=== PATIENT | male | born 1975 | race Caucasian/White ===

== ENCOUNTER 2021-12-04 03:03 | Inpatient (IN) | payer SELFPAY ==
[2021-12-04] VITALS (54 sets, daily range): BP systolic 122–155; BP diastolic 51–102; PULSE 69–117; RESP 14–28; TEMP 36.1–37; O2SAT 91–100; BMI 23.3
--- NOTE | ~2021-12-04 | CT_ITS ---
EXAMINATION: CTA chest PE protocol DATE: 12/06/2021 10:40 INDICATION: Severe shortness of breath TECHNIQUE: Computed tomography angiography (CTA) of the chest was performed with 100 mL Omnipaque-350 intravenous contrast timed to evaluate the pulmonary arteries. Coronal maximum intensity projection 3D-reconstructions were created by the technologist. Automated exposure control and iterative reconst ruction technique were employed. Exam dose: 318.31 mGy-cm total exam DLP. COMPARISON: 12/04/2021 portable AP chest FINDINGS: There is diagnostic contrast enhancement of the pulmonary arteries. There is mild pulmonary embolism involving the left lower lobe and to a lesser extent left upper lobe. No thoracic aortic aneurysm or dissection. Heart size is normal. There is trace pericardial fluid. No hilar or mediastinal mass lesion or lymphadenopathy. Mild infiltrate and/atelectasis in the lower lobes. Normal morphology of the adrenal glands.. Likely chronic L1 fracture deformity. IMPRESSION: Mild left lower lobe and minimal left upper lobe pulmonary embolism Mild infiltrate or atelectasis, lower lobes Reviewed, dictated and finalized at [facility]. Reviewed, dictated and finalized at location B. IMPRESSION: Mild left lower lobe and minimal left upper lobe pulmonary embolis m Mild infiltrate or atelectasis, lower lobes
--- NOTE | ~2021-12-04 | XR_ITS ---
EXAMINATION: XR chest 1V portable DATE: 12/04/2021 04:04 INDICATION: Shortness of breath. TECHNIQUE: A single frontal view of the chest was obtained. COMPARISON: Chest single view 02/12/2018 FINDINGS: The chest demonstrates clear lungs without pneumonia, pleural effusion, or pneumothorax. Th e heart size is normal. There is an old healed right rib fracture. IMPRESSION: 1. No acute cardiopulmonary disease. Reviewed, dictated and finalized at location A.
--- NOTE | ~2021-12-04 | US_ITS ---
EXAMINATION:US venous doppler LE BI INDICATION:Evaluate for DVT. TECHNIQUE: Multiple grayscale, color flow and Doppler images of the right and left lower extremity de ep venous systems were obtained and reviewed. COMPARISON:No prior studies for comparison. FINDINGS: The common femoral, superficial femoral and popliteal veins demonstrate normal respiratory variation, augmentation and compressibility. Color flow is also seen within the posterior tibial, pe roneal, greater saphenous and profunda veins. IMPRESSION: 1: No lower extremity deep venous thrombosis. Reviewed, dictated and finalized at location A.
--- NOTE | ~2021-12-04 | CT_ITS ---
EXAMINATION: CTA brain carotid DATE: 12/07/2021 12:51 INDICATION: Anisocoria. TECHNIQUE: Computed tomographic angiography (CTA) of the head was performed without and with 100 mL O mnipaque-350 intravenous contrast. CTA of the neck was performed with intravenous contrast. Automated exposure control and iterative reconstruction technique were employed. The dose-length product was 1 755.80 mGy-cm. Maximum intensity projection and volume rendered 3D-reconstructions were created by suzanne merrill technologist on a separate workstation. COMPARISON: Head CT 12/06/2021 FINDINGS: HEAD CTA: There is no intracranial hemorrhage, acute infarction, or abnormal intracranial mass lesion . The ventricles are normal in size. There is mucosal thickening in the paranasal sinuses with surgic al changes. The mastoid air cells are normal. The orbits are normal. The vertebral arteries are codom inant. There is no significant stenosis of basilar artery or the posterior cerebral arteries. There i s no significant stenosis of the intracranial internal carotid arteries or anterior or middle cerebra l arteries. Anterior communicating artery is normal. Posterior communicating arteries are not identif ied. There is no aneurysm. NECK CTA: There is mild emphysema. There are no pathologically enlarged lymph nodes. There is no sign ificant stenosis of the vertebral arteries. There is mild plaque in proximal left internal carotid ar helene. There is 0% stenosis of the proximal right internal carotid artery relative to normal distal ar helene lumen diameter (NASCET criteria). There is 0% stenosis of the proximal left internal carotid art dante relative to normal distal artery lumen diameter. There is severe cervical spondylosis. IMPRESSION: 1. Normal brain. No aneurysm or significant intracranial arterial stenosis. 2. 0% stenosis of the proximal internal carotid arteries relative to normal distal artery lumen diame ters (NASCET criteria). Reviewed, dictated and finalized at location A. IMPRESSION: 1. Normal brain. No aneurysm or significant intracranial arterial stenosis. 2. 0% stenosis of the proximal internal carotid arteries relative to normal dis rosalva artery lumen diameters (NASCET criteria).
--- NOTE | ~2021-12-04 | CT_ITS ---
EXAMINATION: CT brain wo con DATE: 12/06/2021 12:31 INDICATION: Anisocoria. TECHNIQUE: Computed tomography (CT) of the head was performed without intravenous contrast. The mA wa s adjusted according to patient size. Iterative reconstruction technique was employed. The dose-lengt h product was 605.33 mGy-cm. COMPARISON: None FINDINGS: There is no intracranial hemorrhage, acute infarction, or abnormal intracranial mass lesion . The ventricles are normal in size. There is mucosal thickening in the paranasal sinuses with surgic al changes. The orbits are normal. The mastoid air cells are normal. IMPRESSION: 1. Normal brain. Reviewed, dictated and finalized at location A. IMPRESSION: 1. Normal brain.
--- NOTE | 2021-12-04 03:12 | ECG_ITS ---
Measurements Intervals [place] Rate: 86 P: 79 OH: 167 QRS: 70 QRSD: 84 T: 54 QT: 334 QTc: 400 Interpretive Statements SINUS RHYTHM NORMAL ECG NO PREVIOUS ECG AVAILABLE FOR COMPARISON Electronically Signed On 12-04-2021 6:57:00 CDT by Joe Fritz D.O.
--- NOTE | 2021-12-04 03:27 | ED.GENADULT ---
HPI - General Adult General Chief complaint: Shortness of Breath/Dyspnea Stated complaint: SOB, Asthma Time Seen by Provider: 12/04/21 03:25 History of Present Illness HPI narrative: This is a 38-year-old male with a history of COPD/ asthma presenting to ED with difficulty breathing. Patient has been having progressively worse shortness of breath for 1 week. It started improved for several days and then got progressively worse. He has been using his albuterol inhaler without relief. He is supposed to be on an inhaled corticosteroid however he cannot get it for his insurance. Patient denies fever chills. He has had a persistent cough and has had some hemoptysis. Patient is not vaccinated against COVID-19. He denies chest pain, abdominal pain, nausea vomiting or diarrhea. Related Data Allergies Allergy/AdvReac Type Severity Reaction Status Date / Time SEASONAL ALLERGENS Allergy Uncoded 12/14/12 12:10 Review of Systems Review of Systems: CONSTITUTIONAL: Denies night sweats. EYES: No eye pain ENT: Denies rhinorrhea CARDIOVASCULAR: Denies palpitations RESPIRATORY: Denies hemoptysis GASTROINTESTINAL: Denies hematemesis GENITOURINARY: Denies hematuria. SKIN: Denies rash MUSCULOSKELETAL: Denies myalgia. NEUROLOGIC: Denies weakness. PSYCHIATRIC: Denies delusions Exam Narrative: APPEARANCE: Patient is speaking in 1-2 word sentences. He is tripoding. He is coughing continuously. Head atraumatic. EYES: PERRLA/EOMI, NOSE: Normal no drainage NECK: Supple, Trachea midline RESPIRATORY: patient has wheezing in all chang. There are scattered expiratory rhonchi. CARDIOVASCULAR: S1S2 appreciated, no peripheral edema ABDOMINAL: Soft, nontender, nondistended, MUSCULOSKELETAl: No obvious deformities NEURO: Alert. Moving 4/4 extremities SKIN:: Warm, dry. Normal color PSYCHIATRIC: Normal affect Course Vital Signs Vital signs: Vital Signs Temperature 97.7 F 12/04/21 03:07 Pulse Rate 100 12/04/21 03:07 Respiratory Rate 22 H 12/04/21 03:07 Blood Pressure 150/86 H 12/04/21 03:07 Pulse Oximetry 92 12/04/21 03:07 Oxygen Delivery Room Air 12/04/21 03:07 Temperature 97.7 F 12/04/21 03:07 Pulse Rate 100 12/04/21 03:07 Respiratory Rate 22 H 12/04/21 03:07 Blood Pressure 150/86 H 12/04/21 03:07 Pulse Oximetry 92 12/04/21 03:07 Oxygen Delivery Room Air 12/04/21 03:07 Medical Decision Making MDM Narrative Medical decision making narrative: this is a 38-year-old male with a history of asthma and COPD presenting to ED in respiratory distress. Patient is tripoding speaking 1-2 word sentences. His lung exam is consistent with COPD. Patient will be started on BiPAP. he will be given continuous inline DuoNebs, steroids and magnesium. Lab work, EKG and chest x-ray have been ordered. COVID swab has been ordered. Patient's lab work was within acceptable limits. His COVID swab was negative. Chest x-ray interpreted by myself showed hyperinflated lungs but no evidence of pneumonia or pneumothorax. Upon re-evaluation patient's work of breathing has decreased. He still has scattered expiratory wheezing. The patient will be admitted for further management of his COPD exacerbation. Vital Signs Vital Signs: Vital Signs Temperature 97.7 F 12/04/21 03:07 Pulse Rate 100 12/04/21 03:07 Respiratory Rate 22 H 12/04/21 03:07 Blood Pressure 150/86 H 12/04/21 03:07 Pulse Oximetry 92 12/04/21 03:07 Oxygen Delivery Room Air 12/04/21 03:07 Temperature 97.7 F 12/04/21 03:07 Pulse Rate 100 12/04/21 03:07 Respiratory Rate 22 H 12/04/21 03:07 Blood Pressure 150/86 H 12/04/21 03:07 Pulse Oximetry 92 12/04/21 03:07 Oxygen Delivery Room Air 12/04/21 03:07 Lab Data Result diagrams: 12/04/21 03:25 12/04/21 03:25 Labs: Lab Results 12/04/21 12/04/21 12/04/21 Range/Units 03:25 03:25 03:25 WBC 7.7 (4.5-10.0) K/mm3
[2021-12-04 03:33] LABS: Basophils Absolute Auto 0.1 K/mm3 (0.0-0.1); Basophils Percent Auto 0.6 % (0.2-1.2); Eosinophils Absolute Auto 1.2 K/mm3 (0-0.3); Eosinophils Percent Auto 16.1 % (0-4.4); Hematocrit 44.1 % (42.0-52.0); Hemoglobin 14.7 g/dL (14.0-18.0); Immature Granulocyte Absolute 0.02 K/mm3 (0.00-0.031); Immature Granulocyte Percent A 0.3 % (0-0.5); Lymphocytes Absolute Auto 2.08 K/mm3 (0.9-3.2); Mean Corpuscular HGB Conc 33.3 g/dl (32-36); Mean Corpuscular Hemoglobin 31.5 pg (26-34); Mean Corpuscular Volume 94.6 fl (80-100); Mean Platelet Volume 9.5 fl (7.4-10.4); Monocytes Absolute Auto 0.8 K/mm3 (0.1-0.6); Monocytes Percent Auto 10.5 % (2.6-8.5); Neutrophils Absolute Auto 3.5 K/mm3 (1.3-6.7); Neutrophils Percent Auto 45.5 % (45.5-73.1); Platelet Count Result 253 k/mm3 (150-375); Red Blood Count 4.66 M/mm3 (4.6-6.20); White Blood Count 7.7 K/mm3 (4.5-10.0)
[2021-12-04] MEDS: IPRATROPIUM BR 0.02% INH SOLN 0.5 MG/2.5 ML VIAL 1 MG (03:34)
[2021-12-04] MEDS: ALBUTEROL SULFATE NEB 2.5 MG/3 ML INH 15 MG (03:35)
[2021-12-04 03:44] LABS: Alanine Aminotransferase 28 U/L (6-50); Albumin Level 4.3 g/dL (3.5-5.1); Alkaline Phosphatase 49 U/L (38-126); Anion Gap 10 mmol/L (8-16); Aspartate Amino Transferase 35 U/L (17-59); Bilirubin,Total 0.5 mg/dL (0.2-1.3); Blood Urea Nitrogen 12 mg/dL (9-20); Calcium 8.4 mg/dL (8.4-10.2); Carbon Dioxide 23 mmol/L (22-30); Chloride 108 mmol/L (98-107); Estimated CRCL calculation 102 ml/min; Estimated Glomerular Filt Rate > 60; Glucose 101 mg/dL (65-110); Potassium 4.1 mmol/L (3.4-5.0); Sodium 141 mmol/L (137-145)
--- NOTE | 2021-12-04 03:45 | PM.IMHP ---
H&P: HPI History of Present Illness Date/Time: 12/04/21 03:45 Chief Complaint: Shortness of breath Narrative: Patient is a 46-year-old male with past medical history of asthma who presented to the ED with complaints of shortness of breath over the last week. Patient's girlfriend was in the room and giving most of the history as the patient was on BiPAP and unable to complete to statins. However she stated that it started about a week ago and they were using home remedies like steam and black coffee. Patient was starting to get better she said however he was having hard time getting up sputum when he would cough. However when he did get a sputum up it was white and green in nature and more than normal. They also said that sometimes the sputum was bloody. Yesterday when bought some Mucinex however that did not seem to help either. Patient's girlfriend stated that she was able to hear his breathing from across the room due to the increasing wheezes. 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 Patient does use inhalers however it was unclear of how he was getting the inhalers but his girlfriend stated that they are just buying inhalers from around. Patient denies any use of CPAP or BiPAP at home. Spoke with patient about smoking cessation. Current BiPAP settings 02/22 with a backup rate of 16 at 40%. Patient seems to be breathing okay and is satting about 93%. Patient did deny any chest pain, nausea, vomiting, diarrhea, constipation, weakness, fatigue, sweats, fevers, chills, lightheadedness, dizziness, falls or syncope. Patient is being admitted to the hospital services and patient Review of Systems Review of Systems: All systems reviewed & are unremarkable except as noted in HPI and below PMFSH Past Medical History Medical History Asthma Family History Family History Father Hypertension Heart disease COPD (chronic obstructive pulmonary disease) Social History Social History (Updated 12/04/21 @ 06:55 by JEFFREY Rankin) Social History: Patient lives with his girlfriend Lexii who will be his healthcare surrogate at this time. Patient has 1 child that is 18 and has 2 dogs. 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 [employer] Gender identity (if verbalized by the patient): Male Sexual Orientation (if Verbalized by the Patient): Straight or Heterosexual Spiritual care concerns: No Agree to blood products: Yes Meds Home Medications and Allergies Home Medications Medication Instructions Recorded Confirmed Type albuterol sulfate 90 mcg/actuation 2 puff inhalation QID PRN 12/04/21 12/04/21 History aerosol inhaler Shortness Of Breath epinephrine 0.125 mg/actuation 1 puff inhalation Q4H PRN 12/04/21 12/04/21 History aerosol inhaler (Primatene Mist) Shortness Of Breath Allergies Allergy/AdvReac Type Severity Reaction Status Date / Time Penicillins Allergy Unknown Verified 12/04/21 06:53 SEASONAL ALLERGENS Allergy Congested Uncoded 12/04/21 06:53 Vital Signs Vital Signs - 24 hr 12/04/21 03:07 12/04/21 03:43 12/04/21 03:47 Temperature 97.7 F Pulse Rate 100 87 87 Respiratory Rate 22 H 24 H 24 H Blood Pressure 150/86 H Pulse Oximetry 92 99 Oxygen Delivery Room Air BiPAP 12/04/21 03:58 12/04/21 03:59 12/04/21 03:14 Temperature Pulse Rate 90 117 H
[2021-12-04] MEDS: MAGNESIUM SULF 2 GM/WATER 50ML 2 GM/50 ML BAG IVPB (03:54)
[2021-12-04] MEDS: methylPREDNISolone SOD SUCC 125 MG VIAL IV PUSH (03:54)
[2021-12-04 04:10] LABS: SARS-CoV-2 RNA PCR Negative
--- NOTE | 2021-12-04 06:47 | PC.NURSE ---
This patient, Josias Curiel, was admitted to IMU Room 207-01. Patient/family oriented to hospital policies and general routines including ID bracelet, bed and alarms, visiting hours, pain management, procedures, bathroom and other care routines, personal items, smoking policy, room service/diet, and visiting hours. Information on how to activate the Rapid Response Team has been discussed. Patient/Family are encouraged to report perceived risks to care and to ask questions if they do not understand what they are told or what they should do.
[2021-12-04 07:27] LABS: Alveolar/Arterial O2 Gradient 136.3 mmHg; Base Excess ABG -1.6 mEq/l (+/-2.0); Carboxyhemoglobin 0.7 % THb (0-2.0); Fractional Inspired Oxygen 40 %; HCO3 ABG 24.2 mEq/l (22.0-26.0); Methemoglobin ABG 0.4 %THb (0-1.5); Oxygen Content ABG 20.4 %vol (16.0-22.0); Oxygen Saturation ABG 97.1 % (95.0-100.0); Oxyhemoglobin 95.9 % THb (90.0-100.0); PCO2 ABG 44.8 mmHg (35.0-45.0); PO2 ABG 97.4 mmHg (80.0-100.0); PO2 FiO2 Ratio Arterial Blood 2.43 %; Total Hemoglobin 15.1 g/dL (12.0-18.0); pH ABG 7.351 (7.350-7.450)
[2021-12-04 07:28] LABS: Device NON-INVASIVE VENT; Non-Invasive Expiratory Pressure 8 CMH2O; Non-Invasive Inspiratory Pressure 12 CMH2O; Non-Invasive Vent Rate 16 /MIN; Site Drawn LEFT BRACHIAL
[2021-12-04 07:52] LABS: Magnesium 2.1 mg/dL (1.6-2.3)
[2021-12-04] MEDS: ENOXAPARIN 40 MG/0.4 ML SYRINGE SUB-Q (08:17)
[2021-12-04] MEDS: ALBUTEROL SULFATE NEB 2.5 MG/3 ML INH INHALATION ×4 (08:45→20:21)
[2021-12-04] MEDS: IPRATROPIUM BR 0.02% INH SOLN 0.5 MG/2.5 ML VIAL INHALATION ×4 (08:45→20:21)
[2021-12-04 13:34] LABS: D Dimer 0.31 ug/mL (<0.48)
[2021-12-04] MEDS: methylPREDNISolone SOD SUCC 40 MG VIAL IV PUSH ×2 (14:45→21:18)
[2021-12-05] VITALS (26 sets, daily range): BP systolic 131–146; BP diastolic 64–89; PULSE 57–99; RESP 16–20; TEMP 36.2–36.7; O2SAT 95–100
[2021-12-05] MEDS: IPRATROPIUM BR 0.02% INH SOLN 0.5 MG/2.5 ML VIAL INHALATION ×6 (00:16→20:48)
[2021-12-05] MEDS: ALBUTEROL SULFATE NEB 2.5 MG/3 ML INH INHALATION ×6 (00:16→20:49)
[2021-12-05] MEDS: methylPREDNISolone SOD SUCC 40 MG VIAL IV PUSH ×3 (06:28→21:58)
[2021-12-05] MEDS: ENOXAPARIN 40 MG/0.4 ML SYRINGE SUB-Q (10:02)
--- NOTE | 2021-12-05 14:24 | PM.IMPN ---
Subjective Date/time seen: 12/05/21 14:24 Interval history: No overnight events noted. No chest pain or shortness of breath. No nausea, vomiting or diarrhea. No fevers or chills. Objective Data Vital Signs Vital Signs: Vital Signs - 24 hr 12/04/21 15:43 12/04/21 15:47 12/04/21 15:59 Temperature Pulse Rate 89 84 Respiratory Rate 20 20 Blood Pressure Pulse Oximetry 97 Oxygen Delivery Nasal Cannula Oxygen Flow Rate 4 Fraction of Inspired Oxygen 12/04/21 16:00 12/04/21 16:12 12/04/21 18:00 Temperature 98.6 F Pulse Rate 92 101 H 90 Respiratory Rate 20 Blood Pressure 134/96 H Pulse Oximetry 91 Oxygen Delivery Oxygen Flow Rate Fraction of Inspired Oxygen 12/04/21 20:23 12/04/21 20:24 12/04/21 20:32 Temperature Pulse Rate 84 77 Respiratory Rate 16 16 Blood Pressure Pulse Oximetry 99 Oxygen Delivery Nasal Cannula Oxygen Flow Rate 3 Fraction of Inspired Oxygen 12/04/21 20:00 12/04/21 20:00 12/04/21 20:00 Temperature 98.2 F Pulse Rate 78 78 Respiratory Rate 22 H Blood Pressure 123/51 L Pulse Oximetry 96 99 Oxygen Delivery Nasal Cannula Oxygen Flow Rate 4 Fraction of Inspired Oxygen 12/04/21 22:00 12/04/21 22:55 12/04/21 23:23 Temperature 97.5 F L Pulse Rate 91 81 77 Respiratory Rate 23 H 20 Blood Pressure 155/75 H Pulse Oximetry 99 99 Oxygen Delivery BiPAP Oxygen Flow Rate Fraction of Inspired Oxygen 12/05/21 00:16 12/05/21 00:33 12/05/21 00:00 Temperature Pulse Rate 79 74 78 Respiratory Rate 16 16 Blood Pressure Pulse Oximetry Oxygen Delivery Oxygen Flow Rate Fraction of Inspired Oxygen 12/05/21 02:00 12/05/21 04:00 12/05/21 04:49 Temperature 97.9 F Pulse Rate 79 61 59 L Respiratory Rate 18 16 Blood Pressure 134/64 Pulse Oximetry 95 Oxygen Delivery Oxygen Flow Rate Fraction of Inspired Oxygen 12/05/21 04:59 12/05/21 00:00 12/05/21 04:00 Temperature Pulse Rate 60 Respiratory Rate 16 Blood Pressure Pulse Oximetry 99 95 Oxygen Delivery BiPAP Nasal Cannula Oxygen Flow Rate 4 Fraction of Inspired Oxygen 40 12/05/21 04:00 12/05/21 06:00 12/05/21 08:14 Temperature Pulse Rate 65 75 59 L Respiratory Rate 16 Blood Pressure Pulse Oximetry Oxygen Delivery Oxygen Flow Rate Fraction of Inspired Oxygen 12/05/21 08:16 12/05/21 08:00 12/05/21 08:00 Temperature 97.2 F L Pulse Rate 57 L Respiratory Rate 16 Blood Pressure 137/83 Pulse Oximetry 97 100 95 Oxygen Delivery Nasal Cannula Nasal Cannula Oxygen Flow Rate 2 2 Fraction of Inspired Oxygen 12/05/21 08:00 12/05/21 10:00 12/05/21 12:00 Temperature 97.3 F L Pulse Rate 62 99 77 Respiratory Rate 16 Blood Pressure 131/72 Pulse Oximetry 98 Oxygen Delivery Oxygen Flow Rate Fraction of Inspired Oxygen 12/05/21 13:24 12/05/21 13:31 Temperature Pulse Rate 73 71 Respiratory Rate 16 16 Blood Pressure Pulse Oximetry Oxygen Delivery Oxygen Flow Rate Fraction of Inspired Oxygen Intake/Output Intake/Output: Intake & Output 12/02/21 12/03/21 12/04/21 12/05/21 23:59 23:59 23:59 23:59 Intake Total 1560 520 Output Total 1100 Balance 1560 -580 Meds/Results Medications: Active Medications Generic Name Dose Route Start Last Admin Trade Name Freq PRN Reason Stop Dose Admin Acetaminophen 650 mg 12/04/21 06:48 Acetaminophen 325 Mg Tablet PO Q4H PRN Mild Pain (1-3) or Fever Hydrocodone Bitart/Acetaminophen 1 tab 12/04/21 06:48 Hydrocodone/Acetaminophen (*Crx) 5-325 Mg Tablet PO Q4H PRN Moderate Pain (4-10) Albuterol 2.5 mg 12/04/21 08:00 12/05/21 13:24 Albuterol Sulfate Neb 2.5 Mg/3 Ml Inh INHALATION 2.5 mg Q4HRT PAMELA Administration Enoxaparin Sodium 40 mg 12/04/21 09:00 12/05/21 10:02 Enoxaparin 40 Mg/0.4 Ml Syringe SUB-Q 40 mg DAILY [facility]
[2021-12-05] MEDS: MONTELUKAST SODIUM 10 MG TABLET PO (20:45)
[2021-12-05] MEDS: FLUTICASONE/SALMETEROL 45-21 MCG INHALER 1 PUFF 2 PUFF INHALATION (20:49)
[2021-12-06] VITALS (20 sets, daily range): BP systolic 133–168; BP diastolic 76–89; PULSE 62–111; RESP 18–22; TEMP 36.4–37.1; O2SAT 94–100
--- NOTE | 2021-12-06 03:00 | PCRCNOTE ---
Window of time for administration has passed. See next scheduled administration.
--- NOTE | 2021-12-06 05:12 | PC.NURSE ---
I HAVE MONITORED THE CHARTING AND MEDICATION DISPENSING FOR THIS PATIENT UNDER THE CARE OF ROSALBA JEFFERSON RN-LICENSE PENDING, AND I AGREE WITH IT ALL.
[2021-12-06] MEDS: methylPREDNISolone SOD SUCC 40 MG VIAL IV PUSH ×3 (05:48→20:57)
[2021-12-06] MEDS: ALBUTEROL SULFATE NEB 2.5 MG/3 ML INH INHALATION ×5 (08:10→23:06)
[2021-12-06] MEDS: FLUTICASONE/SALMETEROL 45-21 MCG INHALER 1 PUFF 2 PUFF INHALATION (08:10)
[2021-12-06] MEDS: IPRATROPIUM BR 0.02% INH SOLN 0.5 MG/2.5 ML VIAL INHALATION ×4 (08:10→20:57)
[2021-12-06 09:47] LABS: Basophils Percent Auto 0.1 % (0.2-1.2); Hematocrit 45.6 % (42.0-52.0); Hemoglobin 15.1 g/dL (14.0-18.0); Immature Granulocyte Absolute 0.08 K/mm3 (0.00-0.031); Immature Granulocyte Percent A 0.9 % (0-0.5); Lymphocytes Absolute Auto 0.75 K/mm3 (0.9-3.2); Lymphocytes Percent Auto 8.2 % (18.3-44.2); Mean Corpuscular HGB Conc 33.1 g/dl (32-36); Mean Corpuscular Hemoglobin 31.4 pg (26-34); Mean Corpuscular Volume 94.8 fl (80-100); Mean Platelet Volume 10.1 fl (7.4-10.4); Monocytes Absolute Auto 0.3 K/mm3 (0.1-0.6); Monocytes Percent Auto 3.3 % (2.6-8.5); Neutrophils Percent Auto 87.5 % (45.5-73.1); Platelet Count Result 273 k/mm3 (150-375); Red Blood Count 4.81 M/mm3 (4.6-6.20); Red Cell Distribution Width 13.4 % (11.5-14.5); White Blood Count 9.2 K/mm3 (4.5-10.0)
[2021-12-06 10:04] LABS: Alanine Aminotransferase 30 U/L (6-50); Albumin Level 4.2 g/dL (3.5-5.1); Alkaline Phosphatase 40 U/L (38-126); Anion Gap 7 mmol/L (8-16); Aspartate Amino Transferase 29 U/L (17-59); Bilirubin,Total 0.5 mg/dL (0.2-1.3); Blood Urea Nitrogen 24 mg/dL (9-20); Calcium 9.1 mg/dL (8.4-10.2); Carbon Dioxide 27 mmol/L (22-30); Chloride 102 mmol/L (98-107); Estimated CRCL calculation 102 ml/min; Estimated Glomerular Filt Rate > 60; Glucose 124 mg/dL (65-110); Potassium 4.8 mmol/L (3.4-5.0); Sodium 136 mmol/L (137-145)
[2021-12-06] MEDS: ENOXAPARIN 40 MG/0.4 ML SYRINGE SUB-Q (10:18)
--- NOTE | 2021-12-06 10:26 | PC.NURSE ---
Patient did not refuse breakfast or dinner on Saturday, December 05, 2021. Patient's visitors brought in meals for him to eat. Will continue to monitor.
--- NOTE | 2021-12-06 15:52 | PM.IMPN ---
Progress Note: A&P Assessment and Plan (1) Acute respiratory failure: Code(s): J96.00 - Acute respiratory failure, unspecified whether with hypoxia or hypercapnia Status: Acute Assessment and Plan: This appears to have resolved as patient is on room air speaking in full sentences without difficulty during rounds. CTA chest does show bilateral pulmonary embolisms. Apixaban initially ordered but due to financial constraints patient will need to be started on theraputic enoxaparin and bridged to warfarin. Will need follow up outpatient to monitor INR. (2) Acute exacerbation of chronic obstructive airways disease: Code(s): J44.1 - Chronic obstructive pulmonary disease with (acute) exacerbation Status: Acute Assessment and Plan: Patient has been uncontrolled due to inability to find cost effective alternatives to symbicort. -Discontinue q4h duonebs -Continue fluticasone-salmeterol BID -Discontinue methylprednisolone ---> prednisone 40 mg to start in AM -Continue montelukast (3) Hypertension: Code(s): I10 - Essential (primary) hypertension Status: Acute Assessment and Plan: Unclear if this is essential hypertension or blood pressure elevation due to steroids. Will monitor for now. (4) Bilateral pulmonary embolism: Code(s): I26.99 - Other pulmonary embolism without acute cor pulmonale Status: Acute Assessment and Plan: CTA chest shows bilateral pulmonary embolism with mild lover left lobe and minimal left upper lobe pulmonary embolism. Bilateral LE ultrasound shows no LE DVT. -Started enoxaparin BID dosing with plan to start warfarin tomorrow -Will need to remain hospitalized while bridging -Goal INR 2-3 -Will get TTE to be sure no RV strain (5) Unequal pupils: Code(s): H57.02 - Anisocoria Status: Acute Assessment and Plan: Noted this morning. All other parts of the neurological exam show no deficits. CTA head shows no acute intracranial process. -Neurology consulted -Ordered syphilis Subjective Date/time seen: 12/06/21 11:52 Patient seen and examined not wearing any oxygen this morning. Patient says he feels much better. Says he works for the [employer] but does not have a primary care physician as his retired a few years ago. Over the years he has avoided having to pay for his prescribed inhalers but having his grandfather [facility] or by getting inhalers from other family member. Previously used Primatene mist but says he feels the newer version is not as helpful. Says in the past combivent and Symbicort worked well. He was unable to continue to purchase symbicort after it once cost him over 300 dollars. Nursing reports noting within the last hour the right pupil is more dilated that the left. Patient also report some debilitating neck pain that started within the last few weeks. Also patient refused CTA chest until after counseling due to concerns about cost. Per care coordination patient qualifies for emergency medicaid. Review of Systems Respiratory: Respiratory: Denies dyspnea and Denies wheezing Objective Data Vital Signs Vital Signs: Vital Signs - 24 hr 12/05/21 20:53 12/05/21 21:24 12/05/21 23:17 Temperature 97.9 F Pulse Rate 85 62 Respiratory Rate 18 Blood Pressure 146/89 H Pulse Oximetry 96 95 Oxygen Delivery Room Air Fraction of Inspired Oxygen 12/06/21 00:00 12/06/21 00:00 12/06/21 01:40 Temperature Pulse Rate 86 62 73 Respiratory Rate 18 Blood Pressure Pulse Oximetry 95 Oxygen Delivery Room Air Fraction of Inspired Oxygen 40 12/06/21 03:03 12/05/21 21:04 12/06/21 03:15 Temperature Pulse Rate 90 81 91 Respiratory Rate 18 18 18 Blood Pressure Pulse Oximetry Oxygen Delivery Fraction of Inspired Oxygen 12/06/21 04:00 12/06/21 04:00 12/06/21 04:00 Temperature 98.1 F Pulse R
[2021-12-06 18:13] LABS: Magnesium 2.1 mg/dL (1.6-2.3)
[2021-12-06] MEDS: CALCIUM CARBONATE (TUMS) 500 MG (200 MG ELEMENTAL) PO (20:57)
[2021-12-06] MEDS: ENOXAPARIN 80 MG/0.8 ML SYRINGE 75 MG SUB-Q (20:57)
[2021-12-06] MEDS: MONTELUKAST SODIUM 10 MG TABLET PO (20:57)
[2021-12-07] VITALS (13 sets, daily range): BP systolic 132–144; BP diastolic 70–80; PULSE 61–84; RESP 20; TEMP 36.6–36.9; O2SAT 95–99
--- NOTE | 2021-12-07 | ECHO_ITS ---
Patient Info Name: Josias Curiel Age: 46 years : 1975 Gender: Male Ht: 70 in Wt: 163 lbs BSA: 1.91 m2 HR: 89 bpm BP: 132 / 78 mmHg Technical Quality: Good Exam Date: 12/07/2021 10:00 AM Exam Location: [facility] Patient Status: Inpatient Admit Date: 12/04/2021 Staff Ordering Physician: Aliya Long MD Hair Stylist: Michelet Galeano, ALEKSANDAR, RT Attending Provider: Gabe Boone MD Referring Physician: Mercedes GONZALEZ; Exam Type: CA echo doppler color flow Study Info Indications I26.99 - Other pulmonary embolism without acute cor pulmonale Complete two-dimensional, color flow and Doppler transthoracic echocardiogram is performed. Strain analysis performed. Summary 1. Complete two-dimensional, color flow and Doppler transthoracic echocardiogram is performed. 2. Left ventricular chamber dimension is normal. 3. Left ventricular systolic function is normal, estimated at 60-65%. 4. The left ventricular diastolic function is normal. 5. E/e' 5 is not elevated. 6. Global longitudinal strain is normal at -22.3%. Left Ventricle E/e' 5 is not elevated. Global longitudinal strain is normal at -22.3%. Left ventricular chamber dimension is normal. Left ventricular systolic function is normal, estimated at 60-65%. The left ventricular diastolic function is normal. Right Ventricle Right ventricular systolic function is normal and with normal TAPSE 2.6 cm. Right ventricular chamber dimension is normal. Left Atria Left atrial chamber dimension is normal. Right Atria Right atrial chamber dimension is normal. Aortic Valve The aortic valve is trileaflet. There is no aortic valve stenosis. There is no aortic valve regurgitation. Pulmonic Valve There is no pulmonic regurgitation. Mitral Valve There is no mitral valve stenosis. There is no mitral valve regurgitation. Tricuspid Valve There is no tricuspid valve regurgitation. Pericardium/Pleural There is no pericardial effusion. Inferior Vena Cava Normal inferior vena cava with >50% collapse upon inspiration consistent with normal right atrial pressure, 5 mmHg. Aorta The aortic root size at the sinus of Valsalva is normal. Left Ventricular Outflow Tract Name Value Normal LVOT 2D LVOT Diameter 2.0 cm LVOT Doppler LVOT Peak Gradient 6 mmHg LVOT Mean Gradient 3 mmHg LVOT VTI 24 cm LVOT VTI/AV VTI Ratio 0.8 LVOT Stroke Volume 75 ml LVOT CO 4.9 l/min LVOT CI 2.6 l/min/m2 Mitral Valve Name Value Normal MV Doppler MV Decel Greene 369 cm/s2 MV PHT 51 ms MV Area (PHT) 4.3 c
[2021-12-07] MEDS: ALBUTEROL SULFATE NEB 2.5 MG/3 ML INH INHALATION (09:13)
[2021-12-07] MEDS: FLUTICASONE/SALMETEROL 45-21 MCG INHALER 1 PUFF 2 PUFF INHALATION (09:18)
[2021-12-07] MEDS: ENOXAPARIN 80 MG/0.8 ML SYRINGE 75 MG SUB-Q (09:56)
[2021-12-07] MEDS: predniSONE 20 MG TABLET 40 MG PO (09:58)
--- NOTE | 2021-12-07 10:08 | PM.IMPN ---
Progress Note: A&P Assessment and Plan (1) Acute respiratory failure: Code(s): J96.00 - Acute respiratory failure, unspecified whether with hypoxia or hypercapnia Status: Acute Assessment and Plan: This appears to have resolved as patient is on room air speaking in full sentences without difficulty during rounds. CTA chest does show bilateral pulmonary embolisms. Apixaban initially ordered but due to financial constraints patient will need to be started on therapeutic enoxaparin and bridged to warfarin. Will need follow up outpatient to monitor INR. -Start warfarin tonight -Coags for AM (2) Acute exacerbation of chronic obstructive airways disease: Code(s): J44.1 - Chronic obstructive pulmonary disease with (acute) exacerbation Status: Acute Assessment and Plan: Patient has been uncontrolled due to inability to find cost effective alternatives to symbicort. -Continue fluticasone-salmeterol BID -Prednisone 40 mg daily -Continue montelukast (3) Hypertension: Code(s): I10 - Essential (primary) hypertension Status: Acute Assessment and Plan: Unclear if this is essential hypertension or blood pressure elevation due to steroids. BP improved with decrease in steroid. Will monitor. (4) Bilateral pulmonary embolism: Code(s): I26.99 - Other pulmonary embolism without acute cor pulmonale Status: Acute Assessment and Plan: CTA chest shows bilateral pulmonary embolism with mild lover left lobe and minimal left upper lobe pulmonary embolism. Bilateral LE ultrasound shows no LE DVT. Echo shows normal RV with no strain. -Continue enoxaparin BID dosing with plan to start warfarin tonight -Will need to remain hospitalized while bridging -Goal INR 2-3 (5) Unequal pupils: Code(s): H57.02 - Anisocoria Status: Acute Assessment and Plan: Noted this morning. All other parts of the neurological exam show no deficits. CTA head shows no acute intracranial process. RPR negative. -Appreciate Neurology recommendations Subjective Date/time seen: 12/07/21 20:08 Patient says he feels better. Says he requested the breathing treatments overnight after the scheduled duo nebs were discontinued as a prophylactic measure and not because he was feeling shortness of breath. Discussed with patient that he will likely be hospitalized for another 3-4 days to complete the warfarin bridging and get the INR within the 2-3 range needed for PE. Also discussed the duration of treatment for PE as well as that for his COPD he will likely need to look for online patient assistance programs. Unless he is eligible for medicaid, which would pay for his scheduled COPD inhalers. Review of Systems Respiratory: Respiratory: Denies dyspnea Exam Narrative: GENERAL: NAD, cooperative HEENT: Normocephalic, atraumatic, anicteric, nares clear, oropharynx moist and clear, dentition normal NECK:Supple CV: Normal S1, S2, RRR, No MRG RESP: CTAB, Normal work of breathing. EXTREMITIES: Warm and well perfused, no clubbing, cyanosis, or edema. SKIN: warm, dry and intact. NEURO: Right pupil dilated without accommodation. Objective Data Vital Signs Vital Signs: Vital Signs - 24 hr 12/06/21 20:50 12/06/21 20:58 12/06/21 22:00 Temperature Pulse Rate 91 95 104 H Respiratory Rate 20 22 H Blood Pressure Pulse Oximetry Oxygen Delivery Fraction of Inspired Oxygen 12/06/21 23:07 12/07/21 00:00 12/07/21 00:00 Temperature 98.0 F Pulse Rate 84 79 83 Respiratory Rate 18 20 Blood Pressure 140/70 Pulse Oximetry 96 Oxygen Delivery Fraction of Inspired Oxygen 12/07/21 00:00 12/07/21 02:00 12/07/21 04:00 Temperature Pulse Rate 83 75 61 Respiratory Rate 20 Blood Pressure Pulse Oximetry 96 Oxygen Delivery Room Air Fraction of Inspired Oxygen 40 12/07/21 04:00 12/07/21 04:00 12/07/21 06:0
--- NOTE | 2021-12-07 11:33 | WPDNEURCNPN ---
Assessment and Plan Assessment and plan (1) Unequal pupils: Code(s): H57.02 - Anisocoria Status: Acute Plan anisocoria with right pupil being bigger than the left though at the time of this examination the pupils are round regular reacting to light equally and there is no restriction of the extraocular movement even though the initial CT scan of the head was normal with no evidence of bleed obtained a CTA to rule out the possibility of aneurysm the chest x-ray is negative and also there is no persistence of the anisocoria and patient is not diabetic year question sympathetic parasympathetic dissociation but it is not persistent Consult date: 12/07/21 Time Seen: 11:00 Reason for consult: Neuro evaluation HPI: Josias Curiel is a 46 year old male admitted to the hospital through the emergency room with complaints of difficulties in breathing in addition to the ongoing history of bronchial asthma with COPD for which she has been using the albuterol inhaler and reportedly he is not allergic to any medication, in the emergency room he general physical neuro examination was normal so as the routine blood studies except the blood pressure 150/86 routine lab studies were normal, in addition to the normal EKG and he was admitted to the hospital with the diagnosis of bronchial asthma as mentioned before routine labs was normal blood sugar was 124 SARS-CoV-2 id negative, CT of the head was negative as well, CTA of the chest was done which revealed mild left upper lobe and a minimal left upper lobe pulmonary embolism but no tremor, patient has been receiving albuterol sulfate neurology consultation was obtained and patient was noted to have anisocoria with right pupil is bigger than the left pupil but is still reacting to the light Review of Systems Review of Systems: All systems reviewed & are unremarkable except as noted in HPI and below [facility] Past Medical History Medical History Asthma Family History Family History Father Hypertension Heart disease COPD (chronic obstructive pulmonary disease) Social History Social History (Updated 12/04/21 @ 06:55 by JEFFREY Rankin) Social History: Patient lives with his girlfriend Lexii who will be his healthcare surrogate at this time. Patient has 1 child that is 18 and has 2 dogs. 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 [employer] Gender identity (if verbalized by the patient): Male Sexual Orientation (if Verbalized by the Patient): Straight or Heterosexual Spiritual care concerns: No Agree to blood products: Yes Meds Home Medications and Allergies Home Medications Medication Instructions Recorded Confirmed Type albuterol sulfate 90 mcg/actuation 2 puff inhalation QID PRN 12/04/21 12/04/21 History aerosol inhaler Shortness Of Breath epinephrine 0.125 mg/actuation 1 puff inhalation Q4H PRN 12/04/21 12/04/21 History aerosol inhaler (Primatene Mist) Shortness Of Breath Allergies Allergy/AdvReac Type Severity Reaction Status Date / Time Penicillins Allergy Unknown Verified 12/04/21 06:53 SEASONAL ALLERGENS Allergy Congested Uncoded 12/04/21 06:53 Vital Signs Vital Signs - 24 hr 12/06/21 12:00 12/06/21 12:00 12/06/21 12:00 Temperature 36.4 C Pulse Rate 78 72 Respiratory Rate 22 H Blood Pressure 168/89 H Pulse Oximetry 100 Oxygen D
[2021-12-07 11:44] LABS: Basophils Percent Auto 0.1 % (0.2-1.2); Hematocrit 43.1 % (42.0-52.0); Hemoglobin 14.4 g/dL (14.0-18.0); Immature Granulocyte Absolute 0.05 K/mm3 (0.00-0.031); Immature Granulocyte Percent A 0.6 % (0-0.5); Lymphocytes Absolute Auto 1.26 K/mm3 (0.9-3.2); Lymphocytes Percent Auto 14.8 % (18.3-44.2); Mean Corpuscular HGB Conc 33.4 g/dl (32-36); Mean Corpuscular Hemoglobin 31.6 pg (26-34); Mean Corpuscular Volume 94.5 fl (80-100); Mean Platelet Volume 9.9 fl (7.4-10.4); Monocytes Absolute Auto 0.5 K/mm3 (0.1-0.6); Monocytes Percent Auto 6.1 % (2.6-8.5); Neutrophils Absolute Auto 6.7 K/mm3 (1.3-6.7); Neutrophils Percent Auto 78.4 % (45.5-73.1); Platelet Count Result 231 k/mm3 (150-375); Red Blood Count 4.56 M/mm3 (4.6-6.20); Red Cell Distribution Width 13.5 % (11.5-14.5); White Blood Count 8.5 K/mm3 (4.5-10.0)
[2021-12-07 12:23] LABS: Alanine Aminotransferase 37 U/L (6-50); Albumin Level 3.8 g/dL (3.5-5.1); Alkaline Phosphatase 37 U/L (38-126); Anion Gap 8 mmol/L (8-16); Aspartate Amino Transferase 33 U/L (17-59); Bilirubin,Total 0.5 mg/dL (0.2-1.3); Blood Urea Nitrogen 25 mg/dL (9-20); Calcium 8.6 mg/dL (8.4-10.2); Carbon Dioxide 26 mmol/L (22-30); Chloride 102 mmol/L (98-107); Estimated CRCL calculation 132 ml/min; Estimated Glomerular Filt Rate > 60; Glucose 123 mg/dL (65-110); Potassium 3.4 mmol/L (3.4-5.0); Sodium 136 mmol/L (137-145)
--- NOTE | 2021-12-07 12:53 | PC.NURSE ---
On 12/07/21, the student, [Delores Galeano], provided care and completed [facility] documentation on this patient. I have reviewed the student's documentation and agree with the findings.
[2021-12-07 15:53] LABS: Rapid Plasma Reagin Non-Reactive (NonReactive)
[2021-12-07 18:59] LABS: Prothrombin Time 12.4 Seconds (11.1-14.7)
--- NOTE | 2021-12-08 11:13 | PM.DS ---
DS: Admitting Diagnosis Discharge Date 12/07/21 Admitting Diagnosis COPD exacerbation DS: Discharge Diagnosis Discharge Diagnosis (1) Acute respiratory failure: Code(s): J96.00 - Acute respiratory failure, unspecified whether with hypoxia or hypercapnia Status: Acute Assessment and Plan: This appears to have resolved as patient is on room air speaking in full sentences without difficulty during rounds. CTA chest does show bilateral pulmonary embolisms. Apixaban initially ordered but due to financial constraints patient will need to be started on therapeutic enoxaparin and bridged to warfarin. Will need follow up outpatient to monitor INR. -Start warfarin tonight -Coags for AM (2) Acute exacerbation of chronic obstructive airways disease: Code(s): J44.1 - Chronic obstructive pulmonary disease with (acute) exacerbation Status: Acute Assessment and Plan: Patient has been uncontrolled due to inability to find cost effective alternatives to symbicort. -Continue fluticasone-salmeterol BID -Prednisone 40 mg daily -Continue montelukast (3) Hypertension: Code(s): I10 - Essential (primary) hypertension Status: Acute Assessment and Plan: Unclear if this is essential hypertension or blood pressure elevation due to steroids. BP improved with decrease in steroid. Will monitor. (4) Bilateral pulmonary embolism: Code(s): I26.99 - Other pulmonary embolism without acute cor pulmonale Status: Acute Assessment and Plan: CTA chest shows bilateral pulmonary embolism with mild lover left lobe and minimal left upper lobe pulmonary embolism. Bilateral LE ultrasound shows no LE DVT. Echo shows normal RV with no strain. -Continue enoxaparin BID dosing with plan to start warfarin tonight -Will need to remain hospitalized while bridging -Goal INR 2-3 (5) Unequal pupils: Code(s): H57.02 - Anisocoria Status: Acute Assessment and Plan: Noted this morning. All other parts of the neurological exam show no deficits. CTA head shows no acute intracranial process. RPR negative. -Appreciate Neurology recommendations DS: Summary Hospital Course Reason for hospitalization: COPD exacerbation Hospital Course: 46M with a past medical history of chronic obstructive pulmonary disease, hypertension who presented to the emergency department with shortness of breath found to be having a COPD exacerbation. Throughout the years the patient had been getting his medication through friends and family rather than purchasing it himself as it was too expensive, so he had been off his controller medication for some time prior to presentation to the emergency department. Patient intially refused due to concerns about cost but eventually agreed to have the CTA chest, which is why it was delayed until after admission from the emergency department. The CTA showed bilateral pulmonary emboli. Echocardiogram showed EF 60-65% with no RV strain. Patient also reported unequal pupils, which were also noted on exam. Neurology was consulted. Apixaban was started for the pulmonary emboli. The diagnosis and need for anticoagulation were discussed with the patient. The apixaban had to be changed to warfarin due to cost, so the patient was started on enoxaparin with the plan of bridging to warfarin. This was explained to the patient. The patient left against medical advice prior to warfarin being started. Time Spent with Patient Time attestation: Total time spent providing and/or coordinating discharge services: Exam Narrative: GENERAL: NAD, cooperative HEENT: Normocephalic, atraumatic, anicteric, nares clear, oropharynx moist and clear, dentition normal NECK:Supple CV: Normal S1, S2, RRR, No MRG RESP: CTAB, Normal work of breathing. EXTREMITIES: Warm and well perfused, no clubbing, cyanosis, or edema. SKIN: warm, dry and intact. NEURO: Right pupi
== END 2021-12-07 18:58 | disposition left against medical advice (07) | DRG 140 ==
LOC: ANHED 04:44 → ANHIMU 06:17
PROVIDERS: Nurse Practitioner; Psychiatry & Neurology Neurology; Student in an Organized Health Care Education/Training Program; Admitting Provider Internal Medicine; Emergency Provider Emergency Medicine; PCP Family Medicine; Visit Provider Family Medicine
DX: J44.1 Chronic obstructive pulmonary disease with (acute) exacerbation (principal); I26.99 Other pulmonary embolism without acute cor pulmonale; J96.90 Respiratory failure, unspecified, unspecified whether with hypoxia or hypercapnia; J45.901 Unspecified asthma with (acute) exacerbation; F17.210 Nicotine dependence, cigarettes, uncomplicated; I10 Essential (primary) hypertension; H57.02 Anisocoria; Z20.822 Contact with and (suspected) exposure to COVID-19; Z28.310 Unvaccinated for COVID-19; Z79.899 Other long term (current) drug therapy
CPT/HCPCS: 36415; 36600; 70450; 70496; 70498; 71045; 71275; 80053; 82375; 82805; 83050; 83735; 85025; 85380; 85610; 86592; 87070; 87205; 93005; 93306; 93970; 94002; 94003; 94640; 96365; 96375; 99285; A9270; C9803; J0456; J0696; J1650; J2920; J2930; J3475; J7512; Q9967; U0003; U0005